=== PATIENT | male | born 1960 ===

== ENCOUNTER 2016-10-18 06:52 | Day surgery (SDC) | payer MEDICAID ==
[2016-10-18 07:19] VITALS: BMI 30.1
--- NOTE | 2016-10-18 07:53 | CP.SDSHP ---
Same Day Surgery H & P - History Proposed Procedure: colonoscopy - Previous Medical/Surgical History Cardiac: Hypertension - Allergies Allergies: Allergies No Known Allergies Allergy (Verified 10/18/16 07:19) - Physical Exam Vital Signs: Vital Signs 10/18/16 07:21 Temperature 97.6 F Pulse Rate 59 L Respiratory 19 Rate Blood Pressure 138/70 O2 Sat by Pulse 99 Oximetry - Date & Time Date: 10/18/16 Time: 07:53 Short Stay Discharge - Short Stay Discharge Admitting Diagnosis/Reason for Visit: HEMORRHAGE OF ANUS AND RECTUM Disposition: HOME/ ROUTINE
[2016-10-18] MEDS ORDERED: Lidocaine 2% Jelly (5 ml) TOP ONE (08:06)
[2016-10-18] MEDS ORDERED: Propofol 10 mg/ml Inj (20 ML) ONE (08:42)
[2016-10-18 09:02] VITALS: TEMP 97.7
[2016-10-18 09:04] VITALS: O2SAT 100
[2016-10-18 09:33] VITALS: BP 119/52; PULSE 53; RESP 18
== END 2016-10-18 09:48 | disposition home or self-care (01) ==
LOC: C.ENDO 06:52
PROVIDERS: ATTEND Colon & Rectal Surgery
DX: D12.5 Benign neoplasm of sigmoid colon (principal); K62.5 Hemorrhage of anus and rectum; D12.3 Benign neoplasm of transverse colon; K62.1 Rectal polyp; I10 Essential (primary) hypertension; K64.8 Other hemorrhoids; D12.2 Benign neoplasm of ascending colon
CPT/HCPCS: 45385; 88305; J0171; J2704